=== PATIENT | male | born 1995 | race African-American/Black ===

== ENCOUNTER 2021-03-29 14:04 | Emergency (ER) | payer SELFPAY ==
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
[2021-03-29] MEDS: Acetaminophen 325 MG TABLET 650 MG PO (14:26)
[2021-03-29 14:29] VITALS: BP 139/76; BP 148/93; PULSE 110; PULSE 80; RESP 16; TEMP 37.1; O2SAT 100; O2SAT 99; BMI 29.0
== END 2021-03-29 16:14 | disposition home or self-care (01) ==
PROVIDERS: Emergency Provider Emergency Medicine
DX: S13.4XXA Sprain of ligaments of cervical spine, initial encounter (principal); S00.83XA Contusion of other part of head, initial encounter; V47.5XXA Car driver injured in collision with fixed or stationary object in traffic accident, initial encounter; Y93.89 Activity, other specified; Y92.411 Interstate highway as the place of occurrence of the external cause; Y99.9 Unspecified external cause status
CPT/HCPCS: 70450; 72125; 99284